=== PATIENT | male | born 1955 | race Two or more races ===

== ENCOUNTER 2016-07-01 17:19 | Emergency (ER) | payer OTHER ==
[~2016-07-01] VITALS: Ht 170.2 cm; Wt 88.0 kg
[2016-07-01] MEDS ORDERED: Adenosine 3 mg/mL 2 mL Inj ONE ×2 (17:24→17:26)
--- NOTE | 2016-07-01 17:26 | ED.REPORT ---
HPI-Chest Pain 40 and Over Date of Service Jul 01, 2016 ED Provider: The patient is a 61 year old male with history of hypertension, diabetes mellitus, high cholesterol and SVT, who presents to the emergency department complaining of severe chest pain that began 1 hour ago. He had similar symptoms 6 months ago and was diagnosed with SVT. He was treated with Adenosine and discharged home with close outpatient followup with his PCP. The patient was also seen by a spray painting machine operator. He did not miss any medication doses today or recently. Nursing Notes Stated Complaint: SEVERE CHEST PAIN Nursing Notes Reviewed: Yes Allergies: Coded Allergies: No Known Allergies (Unverified , 02/06/16) General Time Seen by MD: 17:26 Chief Complaint Chest pain Hx Obtained From: Patient, Spouse, Transit Mixer Driver Arrived By: Walk-in Sudden in Onset?: Yes Onset Occurred: 1 - 4 hours ago Symptom Duration: Since onset Quality: Painful Severity: Current: Severe Severity: Maximum: Severe Recent Healthcare: No recent doctor visit, No recent hospitalization Similar Sx Previous: Yes Past Medical History Past Medical History HTN Hypercholesterolemia Diabetes mellitus SVT Past Surgical History None reported Family History Noncontributory Smoking History Never Smoker Social History Alcohol Use: "Social" Drug Use: Denies drug use Other Social History: Good social support, , Local resident Ambulatory Status Independent Review of Systems Cardiovascular: Reports: Chest pain Complete sys rev & neg: except as marked. Physical Exam Initial Vital Signs Vital Signs (First) Date Time Temp Pulse Resp B/P Pulse Ox O2 Delivery O2 Flow Rate FiO2 07/01/16 17:39 36.5 207 24 137/78 97 Room Air 07/01/16 17:46 4 Initial VS: Reviewed Head / Eyes: Atraumatic, Normocephalic, PERRL ENT: Mucous membranes moist, Conjunctiva normal, No scleral icterus Neck: Supple, Non-tender, Full range of motion Back: No CVA tenderness Lymphatic: No lymphadenopathy Extremities: Vascular intact, Neuro intact, No swelling, No tenderness Skin: Warm, Dry, No cyanosis Neurologic: Alert, Oriented, Nonfocal Psychiatric: Mood/affect normal, Behavior normal, Normal thought content General/Constitutional: Awake, Alert Distress / Hydration: Positive: Distress mild Respiratory / Chest: Atraumatic, Breath sounds NL, Breath sounds = bilat, No respiratory distress, No rales, No rhonchi, No wheezing, No stridor, No chest tenderness Heart Rate / Rhythm: Positive: Tachycardia (heart rate in the low 200's) Abdomen: Atraumatic, Soft, Non-tender, McBurney's non-tender, No guarding, No rebound, BS normoactive, No distention, No hernia, No palpable mass Interpretation & Diagnostics Lab Results Interpretation Result Diagram: 07/01/16 1730 07/01/16 1730 Test 07/01/16 17:30 White Blood Count 8.5th/mm3 (3.8-10.1) Red Blood Count 4.82mil/mm3 (4.40-5.80) Hemoglobin 11.6g/dL (13.8-17.2) Hematocrit 36.8% (41.0-50.0) Mean Corpuscular Volume 76.3fL (81-100) Mean Corpuscular Hemoglobin 24.1pg (27.0-35.0) Mean Corpuscular Hemoglobin Concent 31.5% (32.0-37.0) Red Cell Distribution Width 14.5% (12.3-15.4) Platelet Count 292bil/L (150-400) Neutrophils (%) (Auto) 52.3% (40-74) Lymphocytes (%) (Auto) 35.5% (14-46) Monocytes (%) (Auto) 10.0% (4-12) Eosinophils (%) (Auto) 1.8% (0-5) Basophils (%) (Auto) 0.2% (0-3) Sodium Level 132mEq/L (134-144) Potassium Level 4.2mEq/L (3.5-5.2) Chloride Level 92mEq/L (97-108) Carbon Dioxide Level 22mmol/L (18-29) Blood Urea Nitrogen 14mg/dL (6-24) Creatinine 0.88mg/dL (0.76-1.27) Estimat Glomerular Filtration Rate 94mL/min (>59) Glucose Level 188mg/dL (60-99) Calcium Level 9.6mg/dL (8.5-10.1) Magnesium Level 1.8mg/dL (1.6-2.6) Total Bilirubin 0.2mg/dL (0.0-1.2) Aspartate Amino Transf (AST/SGOT) 44U/L (0-50) Alanine Aminotransferase (ALT/SGPT) 37U/L (0-44) Alkaline Phosphatase 58U/L (25-160) Troponin T < 0.010ug/L (0.0-0.011) Total Protein 8.6g/dL (6.4-8.4) Albumin 4.6g/dL (3.4-5.0) Thyroid Stimulating Hormone (TSH) 5.950uIU/mL (0.450-4.500) ECG Interpretation ECG Interpretation: SVT Previous EKG showed normal sinus rhythm, there were no delta waves or sign of WPW Time: 17:28 Interpreted by: ED physician ECG Interpretation: Sinus tachycardia with a rate of 103 Time: 17:37 Interpreted by: ED physician Re-Eval/Medical Decision Med Decision/Clinical Course Recurrent SVT treated with 12 of adenosine. 25 mg metoprolol tartrate given. Labs overall unremarkable for any emergent medical condition. Recommended the patient call his spray painting machine operator in the morning for close outpatient follow-up. Return precautions given Source of Hx: Old records, Family Summary of Info: Holter monitor final interpretation from 04/13/2016: No PVCs, no SVT, no VT, and no significant pauses present. Time of Eval: 17:31 Re-Evaluation/Progress Note: Discussed plan for adenosine. The patient understands and agrees. Time of Eval: 17:34 Re-Evaluation/Progress Note: Heart rate now at 112. The patient is feeling better and the chest pain has improved. Counseled Regarding: Diagnosis, Lab results, Need for follow-up, When/why to return to ED Discharge & Departure Primary Impression: SVT (supraventricular tachycardia) Disposition: Home Discharge Condition All VS Reviewed: Yes Condition: Stable Patient Instructions: Supraventricular Tachycardia (ED) Additional Instructions: Thank you for entrusting us with your care today. Continue your normal medications as previously prescribed. Call your spray painting machine operator tomorrow to schedule a close followup appointment. Please return to the emergency department for recurrent symptoms, chest pain, shortness of breath, or any other new or concerning symptoms. Referrals: Alejandro Espinoza MD (PCP/Family) Angelina Carty MD Scribe Attestation Portions of this note were transcribed by Clare Hernandez. I, Dr. Castillo personally performed the history, physical exam and medical decision-making; I reviewed and confirmed the accuracy of the information in the transcribed note. Signed by: Nahun Garcia, 07/01/2016 and 1805. copies to: Alejandro Espinoza MD; Angelina Carty MD, Timothy S DO Jul 01, 2016 17:26 Clare Hernandez Jul 01, 2016 17:32
[2016-07-01] MEDS ORDERED: Adenosine 3 mg/mL 2 mL Inj IVPUSH ONE (17:30)
[2016-07-01] MEDS ORDERED: 0.9% Sodium Chloride 1,000 ML IV ONE (17:30)
[2016-07-01 17:38] LABS: BASOPHILS % (AUTO) 0.2 % (0-3); EOSINOPHILS % (AUTO) 1.8 % (0-5); Mean Corpuscular Hemoglobin 24.1 pg (27.0-35.0); Mean Corpuscular Volume 76.3 fL (81-100); NEUTROPHILS % (AUTO) 52.3 % (40-74); Platelet Count 292 bil/L (150-400)
[2016-07-01 17:39] VITALS: BP 137/78; PULSE 207; RESP 24; O2SAT 97
[2016-07-01 17:46] VITALS: BP 153/78; PULSE 110; RESP 30; O2SAT 100
[2016-07-01 17:58] VITALS: BP 122/70; PULSE 101; RESP 16; O2SAT 100
--- NOTE | 2016-07-01 18:15 | DRSVH ---
PROCEDURE: X-RAY CHEST ONE VIEW, PORTABLE ([id number]) INDICATIONS: CHEST PAIN TECHNIQUE: One view of the chest was acquired. COMPARISON: None. FINDINGS: Surgical changes and devices: None. Lungs and pleura: No pleural effusions or pneumothorax. Lungs are clear. Mediastinum: Mediastinal contours appear normal. Heart size is normal. Bones and chest wall: No suspicious bony lesions. Overlying soft tissues appear unremarkable. IMPRESSION: No acute cardiopulmonary disease process. Dictated by: Tianna Oneill MD, PhD on 07/01/2016 at 18:13 Approved by: Tianna Oneill MD, PhD on 07/01/2016 at 18:14
[2016-07-01 18:19] LABS: TROPONIN T < 0.010 ug/L (0.0-0.011)
[2016-07-01 18:27] LABS: Magnesium 1.8 mg/dL (1.6-2.6)
[2016-07-01 20:44] VITALS: BP 138/82; PULSE 93; RESP 14; O2SAT 93
== END 2016-07-01 20:46 | disposition home or self-care (01) ==
LOC: SED 17:19
DX: I47.1 Supraventricular tachycardia (principal); I10 Essential (primary) hypertension; E11.9 Type 2 diabetes mellitus without complications
CPT/HCPCS: 36415; 71010; 80053; 83735; 84443; 84484; 85025; 93005; 96361; 96374; 99285; J0153; J7030

== ENCOUNTER 2016-10-13 22:19 | Emergency (ER) | payer OTHER ==
[~2016-10-13] VITALS: Ht 165.1 cm; Wt 90.9 kg
[2016-10-13 22:23] VITALS: BP 116/56; PULSE 108; RESP 28; O2SAT 95
--- NOTE | 2016-10-13 22:25 | ED.REPORT ---
HPI-General Illness Date of Service October 13, 2016 ED Provider: Mark Desouza MD Pt is a 61 y/o Brandee-speaking male w/ a hx of SVT, HTN, hyperlipidemia, DM, presenting to the ED via EMS with his family due to rapid palpitations which began about 1 hr prior to arrival and lasted about 15-20 minutes. Medics were called to the scene and the patient was found to be in SVT. 6 mg Adenosine was administered and he was converted to a NSR at rate ~100 bpm successfully. He experienced chest pain, shortness of breath, and headache during the episode, all of which are almost if not completely resolved at time of interview. This is the 3rd time he has been seen for SVT here at [facility], past episodes occurring on Jul 01, 2016 and Feb 06, 2016. His family states that he has not been taking his regular morning-time BP medication, which they do not know the name of. Rhythm strip on route is reviewed and interpreted as SVT. Nursing Notes Stated Complaint: SUBSTERNAL PALPITATIONS SOB Chief Complaint: Dysrhythmia/Cardiac Nursing Notes Reviewed: Yes Allergies: Coded Allergies: No Known Allergies (Unverified , 02/06/16) Scheduled Glipizide (Glipizide) 10 Mg Tablet 10 MG PO BID Hydrochlorothiazide (Hydrochlorothiazide) 25 Mg Tablet 25 MG PO DAILY Lisinopril (Lisinopril) 40 Mg Tablet 40 MG PO DAILY Metformin (Metformin) 500 Mg Tablet 1,000 MG PO MORNING Metformin (Metformin) 500 Mg Tablet 1,500 MG PO HS Metoprolol Tartrate (Metoprolol Tartrate) 50 Mg Tablet 50 MG PO BID Metoprolol Tartrate (Metoprolol Tartrate) 75 Mg Tablet 75 MG PO BID Pravastatin (Pravastatin) 40 Mg Tablet 40 MG PO HS General Time Seen by MD: 22:24 Chief Complaint Other (rapid palps) Hx Obtained From: Patient, EMS Arrived By: Ambulance Sudden in Onset?: Yes Onset Occurred: 1 - 4 hours ago Symptom Duration: 16 - 30 minutes Location: : Chest: Head Quality: Painful Radiation: : Does not radiate Severity: Current: No pain currently Severity: Maximum: Moderate Recent Healthcare: Previous diagnosis Similar Sx Previous: Yes Past Medical History Past Medical History HTN Hypercholesterolemia Diabetes mellitus SVT Past Surgical History None reported Family History Noncontributory Smoking History Never Smoker Social History Alcohol Use: "Social" Drug Use: Denies drug use Other Social History: Good social support, , Local resident Ambulatory Status Independent Review of Systems Full Review of Systems Constitutional: Denies: Chills, Fever Respiratory: Reports: Shortness of breath, Denies: Non-productive cough Cardiovascular: Reports: Chest pain GI: Denies: Abdominal pain, Nausea, Vomiting Neurologic: Reports: Headache Complete sys rev & neg: except as marked. Physical Exam Vital Signs Vital Signs Date Time Temp Pulse Resp B/P Pulse Ox O2 Delivery O2 Flow Rate FiO2 10/14/16 01:40 36.6 98 19 142/76 98 Room Air 10/13/16 23:26 102 16 124/66 97 Room Air 10/13/16 22:23 36.7 108 28 116/56 95 Nasal Cannula 2 Initial VS: Reviewed, Vital signs abnormal Head / Eyes: Atraumatic, Normocephalic, PERRL ENT: Mucous membranes moist, Conjunctiva normal, No scleral icterus Respiratory: Breath sounds normal, Clear to auscultation, No respiratory distress Abdomen / GI: Soft, Non-tender, No guarding, No rebound, No distention Skin: Warm, Dry, No cyanosis Neurologic: Alert, Oriented, Nonfocal Psychiatric: Behavior normal, Normal thought content General/Constitutional: Awake, Alert, No acute distress, Cooperative, Not toxic appearing Behavior: Positive: Anxious Appearance / Presentation: Positive: Obese (mild) Neck: Atraumatic, Supple, No meningismus, Full range of motion, No JVD, Thyroid NL Cardiovascular: Heart rate NL, Regular rhythm, Heart sounds NL, No gallop, No murmurs, No rubs Lower Extremity / Pelvis / MS: Atraumatic, Full range of motion, No swelling, Non-tender, No erythema, No deformity, Neurologic intact, Vascular intact No cords Interpretation & Diagnostics Lab Results Interpretation Result Diagram: 10/13/16222810/13/162228 Test 10/13/16 22:29 10/14/16 00:05 White Blood Count 9.8th/mm3 (3.8-10.1) Red Blood Count 4.86mil/mm3 (4.40-5.80) Hemoglobin 11.2g/dL (13.8-17.2) Hematocrit 36.2% (41.0-50.0) Mean Corpuscular Volume 74.5fL (81-100) Mean Corpuscular Hemoglobin 23.0pg (27.0-35.0) Mean Corpuscular Hemoglobin Concent 30.9% (32.0-37.0) Red Cell Distribution Width 14.8% (12.3-15.4) Platelet Count 327bil/L (150-400) Neutrophils (%) (Auto) 49.2% (40-74) Lymphocytes (%) (Auto) 37.6% (14-46) Monocytes (%) (Auto) 11.0% (4-12) Eosinophils (%) (Auto) 1.7% (0-5) Basophils (%) (Auto) 0.3% (0-3) Hold Purple Top Tube Received (Received) Prothrombin Time 10.2sec (8.1-12.5) Prothromb Time International Ratio 0.95ratio Activated Partial Thromboplast Time 24.7sec (22.8-33.0) D-Dimer < 0.50mg/L FEU (<0.50) Hold Blue Top Tube Received (Received) Sodium Level 138mEq/L (134-144) Potassium Level 3.9mEq/L (3.5-5.2) Chloride Level 98mEq/L (97-108) Carbon Dioxide Level 17mmol/L (18-29) Blood Urea Nitrogen 13mg/dL (6-24) Creatinine 0.86mg/dL (0.76-1.27) Estimat Glomerular Filtration Rate 97mL/min (>59) Glucose Level 176mg/dL (60-99) Calcium Level 9.9mg/dL (8.5-10.1) Magnesium Level 1.7mg/dL (1.6-2.6) Total Bilirubin 0.2mg/dL (0.0-1.2) Aspartate Amino Transf (AST/SGOT) 41U/L (0-50) Alanine Aminotransferase (ALT/SGPT) 36U/L (0-44) Alkaline Phosphatase 60U/L (25-160) Pro-B-Type Natriuretic Peptide 27.01pg/mL (0-210) Total Protein 8.6g/dL (6.4-8.4) Albumin 4.5g/dL (3.4-5.0) Thyroid Stimulating Hormone (TSH) 5.750uIU/mL (0.450-4.500) Free Thyroxine 1.16ng/dL (0.82-1.77) Hold [place] Top Tube Received (Received) Troponin T 0.010ug/L (0.0-0.011) ECG Interpretation ECG Interpretation: Sinus tachycardia rate 103 Time: 23:17 Interpreted by: ED physician Normal ECG Interpretation: No acute ischemic changes X-Ray Chest Interpretation Chest Xray Interpretation: Poor inspiration View: Portable, 1 view Interpretation / Wet Read by: Wet read ED physician NL X-Ray Chest Findings: No infiltrate, No acute disease Re-Eval/Medical Decision Med Decision/Clinical Course 61-year-old with repetitive episodes of SVT, previously evaluated here, presents after conversion with 6 mg of adenosine. He is negative by enzymes and has unremarkable EKG. Repeat enzymes also negative. He is not beta blocked at baseline with a pulse of ninety-six. Given an additional 50 mg of metoprolol, which is his baseline and hypertensive, and daily dose increased to seventy-five twice a day. He is discharged on stable condition for follow-up with PCP, and with the relish blender for possible intervention. Time of Eval: 01:04 Patient Status: Condition resolved, Complete relief, Pain resolved Re-Evaluation/Progress Note: Pt rechecked. Informed pt of plan for treatment. Pt understands and agrees with plan for treatment. F/U instructions and RTER warnings given. All questions addressed. Counseled Regarding: Diagnosis, Lab results, Need for follow-up, When/why to return to ED Discharge & Departure Primary Impression: SVT (supraventricular tachycardia) Disposition: Home Discharge Condition All VS Reviewed: Yes Condition: Stable Patient Instructions: Supraventricular Tachycardia (ED) Additional Instructions: You have had an episode of supraventricular tachycardia. This is generally not dangerous, but can cause problems if it is prolonged. Increase your current metoprolol to 1-1/2 tablets twice daily. I have written for the proper dose (75 mg) twice daily, and you can switch over to that one to fill your prescription. Follow-up with your doctor this week. Call tomorrow morning for follow-up. He can arrange follow-up with the quality rep, Dr. Anderson. Return if you have sustained palpitations for more than fifteen minutes. Return if you have chest pain or shortness of breath lasting longer than fifteen minutes. Referrals: Alejandro Espinoza MD (PCP) Kareem Anderson MD Attestation Portions of this note were transcribed by Nj May. I, Dr. Desouza personally performed the history, physical exam and medical decision-making; I reviewed and confirmed the accuracy of the information in the transcribed note. Signed by Nahun Moy, 10/13/16 - [id number] copies to: Alejandro Espinoza MD; Kareem Anderson MD, Christopher W MD October 13, 2016 22:25 [place] MAY October 13, 2016 22:34
[2016-10-13 22:50] LABS: BASOPHILS % (AUTO) 0.3 % (0-3); EOSINOPHILS % (AUTO) 1.7 % (0-5); Mean Corpuscular Volume 74.5 fL (81-100); NEUTROPHILS % (AUTO) 49.2 % (40-74); Platelet Count 327 bil/L (150-400)
[2016-10-13 22:59] LABS: D-Dimer < 0.50 mg/L FEU (<0.50); INR 0.95 ratio
[2016-10-13 23:11] LABS: TROPONIN T 0.01 ug/L (0.0-0.011)
[2016-10-13] MEDS ORDERED: METF-496 PO (23:12)
[2016-10-13 23:22] LABS: Magnesium 1.7 mg/dL (1.6-2.6)
[2016-10-13 23:26] VITALS: BP 124/66; PULSE 102; RESP 16; O2SAT 97
[2016-10-13] MEDS ORDERED: PRAV40TA PO (23:51)
[2016-10-13] MEDS ORDERED: GLIP10TA10 PO (23:54)
[2016-10-13] MEDS ORDERED: LISI40TA PO (23:54)
[2016-10-13] MEDS ORDERED: METO50TA3 PO (23:54)
[2016-10-13] MEDS ORDERED: HYDR25TA4 PO (23:56)
[2016-10-13] MEDS ORDERED: METF500T4 PO ×2 (23:57)
[2016-10-14] MEDS ORDERED: METO75TA PO (01:00)
[2016-10-14 01:40] VITALS: BP 142/76; PULSE 98; RESP 19; O2SAT 98
--- NOTE | 2016-10-14 09:24 | DRSVH ---
PROCEDURE: X-RAY CHEST ONE VIEW, PORTABLE ([id number]) INDICATIONS: 61 year-old male with SVT. TECHNIQUE: One view of the chest was acquired. COMPARISON: [facility], CR, XR CHEST 2VW, 02/06/2016, 11:05. [facility], CR, XR CHEST 1VW (PORTABLE), 07/01/2016, 17:55. FINDINGS: Surgical changes and devices: None. Lungs and pleura: Bilateral perihilar interstitial infiltrates. No pleural effusions or pneumothorax . Mediastinum: Mediastinal contours appear normal. Heart size is normal. Bones and chest wall: No suspicious bony lesions. Overlying soft tissues appear unremarkable. IMPRESSION: Bilateral perihilar interstitial infiltrates suspicious for pulmonary congestion. Dictated by: Patrick Márquez M.D. on 10/14/2016 at 9:22 Approved by: Patrick Márquez M.D. on 10/14/2016 at 9:23
== END 2016-10-14 01:43 | disposition home or self-care (01) ==
LOC: SED 22:19 → EDBD 22:19 → EDUNIT# 22:19 → SED 10-14 01:43
DX: I47.1 Supraventricular tachycardia (principal); R07.9 Chest pain, unspecified; R06.02 Shortness of breath; R51 Headache; I10 Essential (primary) hypertension; E11.9 Type 2 diabetes mellitus without complications; Z79.84 Long term (current) use of oral hypoglycemic drugs
CPT/HCPCS: 36415; 71010; 80053; 82948; 83735; 83880; 84439; 84443; 84484; 85025; 85378; 85610; 85730; 93005; 96374; 99285; J1885

== ENCOUNTER 2016-12-15 00:22 | Day surgery (SDC) | payer OTHER ==
[2016-12-15] VITALS (18 sets, daily range): BP systolic 133–181; BP diastolic 72–96; PULSE 69–97; RESP 12–25; O2SAT 96–100
[~2016-12-15] VITALS: Ht 170.2 cm; Wt 90.0 kg
[~2016-12-15 00:22] MED LIST: GLIP10TA10 PO; HYDR25TA4 PO; LISI40TA PO; METF500T4 PO; METO25TA6 PO; PRAV40TA PO
--- NOTE | 2016-12-15 06:15 | NUR ---
ADMISSION NOTE MALE PT ADMITTED FOR ABLATION. DISCUSSED PLAN OF CARE WITH PT, FAMILY AND FRIENDS. SEE ADMIT AND FLOW SHEET
[2016-12-15 06:58] LABS: INR 0.94 ratio
[2016-12-15] MEDS ORDERED: METF-496 PO (07:09)
[2016-12-15 07:53] LABS: BASOPHILS % (AUTO) 0.3 % (0-3); EOSINOPHILS % (AUTO) 2.3 % (0-5); MONOCYTES % (AUTO) 9.8 % (4-12); Mean Corpuscular Hemoglobin 22.2 pg (27.0-35.0); Platelet Count 289 bil/L (150-400)
[2016-12-15] MEDS ORDERED: Heparin 10,000 Unit/1,000 mL NS Premix IV ONE (07:53)
[2016-12-15] MEDS ORDERED: fentaNYL-PF 50 mCg/mL 2 mL Inj ONE (08:56)
[2016-12-15] MEDS ORDERED: Isoproterenol 200 mCg/50 mL D5W IV IV ONE ×2 (09:44→09:45)
[2016-12-15] MEDS ORDERED: Ondansetron 2 mg/mL 2 mL Inj IVPUSH PRN (11:00)
--- NOTE | 2016-12-15 11:42 | NUR ---
PATIENT RETURNED FROM [facility] [facility] IN STABLE CONDITION, ALERT AND ORIENTED.RIGHT GROIN TENDERNESS, NO HEMATOMA. POST PROCEDURE INSTRUCTIONS GIVEN THROUGH TATTOO TECHNICIAN.
--- NOTE | 2016-12-15 11:53 | NUR ---
Patient's son informed of completion of procedure and that is father is recovering.
--- NOTE | 2016-12-15 14:16 | PROCED ---
[address] [address] PROCEDURE NOTE PATIENT: JOSEF NICHOLSON : 1955 MR#: [id number] ADMIT: 12/15/2016 JOB ID: [id number] DATE OF SERVICE: 12/15/2016 PREOPERATIVE DIAGNOSIS(ES): Recurrent drug refractory paroxysmal supraventricular tachycardia. POSTOPERATIVE DIAGNOSIS(ES): AV zoe reentry tachycardia, Status post slow pathway modification. PROCEDURE PERFORMED: 1. Comprehensive electrophysiology study with left atrial pacing recording via the coronary sinus catheter. 2. Three-dimensional electroanatomic mapping using the CARTO 3 system. 3. Supraventricular tachycardia ablation (atrial ablation; slow pathway modification). 4. Fluoroscopy. SURGEON: Banquet Director: Kareem Anderson MD, Electrophysiology attending. INTAKE COUNSELOR: Polo Jacob PA-C ANESTHESIA: Bolus dosing of Versed and fentanyl were utilized for appropriate level of sedation. INDICATION: Mr. Nicholson is a pleasant 61-year-old man with recurrent drug refractory SVT. After discussion of risks and benefits of catheter based mapping ablation, he opted to proceed. PROCEDURE DESCRIPTION: The patient was taken to the EP laboratory in a fasting nonsedated state, where he was prepped in usual sterile fashion. The bilateral groins were infiltrated with 1% lidocaine. Then, using modified Seldinger technique, two 6-Zambian sheaths were inserted in left femoral vein and a 7 and 8-Zambian sheath was inserted through the right femoral vein under fluoroscopic guidance, the deflectable decapolar catheter was advanced to the coronary sinus with the most proximal bipolar at the os of the sinus. A CRD2 catheter was advanced to the His position. A Charlette quadripolar catheter was advanced to the RV apex. Comprehensive electrophysiology was undertaken with right atrial pacing recording, right ventricular pacing for His bundle recording, left atrial pacing via the coronary sinus catheter. Ventricular pacing showed a concentric atrial activation pattern without inducible dysrhythmias. Antegrade conduction showed an antegrade jump and ultimately the patient's clinical tachycardia was induced with an antegrade jump. This was a regular narrow tachycardia with a mean time of 0 msec consistent with AV zoe reentry tachycardia. An F curve 4 mm ablation catheter was brought to the field and used to create a three-dimensional electroanatomic map of the right atrium, tricuspid anulus, the triangle of Rios. Ablation lesions were placed at the base of the triangle of Rios in the region of the slow pathway ultimately leading to multiple conducted junctional beats. Aggressive induction maneuvers were undertaken post ablation, and ultimately following the last ablation, an antegrade jump with was seen without echoes or inducible AV node re-entry tachycardia. Of note, following the last ablation and for a few seconds, the patient was in 2:1 AV block. He resumed 1:1 very brisk conduction with otherwise normal intervals within 4 seconds. All catheters and sheaths were removed. Manual pressure was held for hemostasis. Patient for monitoring, bedrest. COMPLICATIONS: None. ESTIMATED BLOOD LOSS: Negligible. FINDINGS: 1. Baseline rhythm is sinus with an RR interval of 678 msec, ME 160 msec, QRS 76 msec, QT 336 msec. 2. Intracardiac intervals atrial V 75 msec, HV 56 msec. Post ablation those intervals are 84 msec and 56 msec, respectively. 3. Retrograde conduction VA conduction is concentric VA Wenckebach seen at 310 msec. VERP is 220 msec at a [address] 4. Antegrade conduction, AV zoe ERP is 230 msec at a [address] VERP was 220 msec. 5. 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 IMPRESSION: Successful slow pathway modification for AV zoe reentrant tachycardia. PLAN: 1. Bedrest x4 hours. 2. Discontinue beta blockade. 3. Monitoring overnight. 4. Anticipate discharge tomorrow. 5. Follow up Polo Ashleyjose in clinic in four weeks. ATTENDING STATEMENT: Kareem Anderson MD, Electrophysiology attending was present for and supervised/performed all aspects of this procedure
[2016-12-15] MEDS: HYDROcodone-APAP 5-325 mg Tablet PO PRN ×2 (14:17→20:07)
--- NOTE | 2016-12-15 15:30 | NUR ---
TRANSFER NOTE TO [facility]. REPORT GIVEN.
[2016-12-15] MEDS: 0.9% Sodium Chloride 1,000 ML IV SCH ×2 (15:46→16:21)
[2016-12-15] MEDS: metFORMIN ER 500 mg ER24 Tablet PO SCH (18:10)
--- NOTE | 2016-12-15 19:35 | NUR ---
Arrived to unit Pt arrived to P[facility] room 2005 at ~1550 today from [facility]. Pt's groin sites stable when assessed with NASIR RN and VSS on RA. Pt reported lots of mid/central back pain upon arrival. Pt was repositioned, given PRN ibuprofen, and a heat pack. Pt reported pain to resolve to a 1/10.
[2016-12-16] MEDS: HYDROcodone-APAP 5-325 mg Tablet PO PRN ×3 (01:49→12:17)
[2016-12-16] MEDS: 0.9% Sodium Chloride 1,000 ML IV SCH (02:21)
[2016-12-16 03:11] VITALS: BP 149/80; PULSE 74; RESP 17; O2SAT 97
[2016-12-16 05:53] VITALS: PULSE 81
--- NOTE | 2016-12-16 05:58 | NUR ---
Back Pain Pt reported back pain consistently at 9/10 throughout shift to mid-upper back; 2 tabs [place] administered, accompanied by heat packs, when requested by patient, with relief upon reassessment. Per patient, pain medication works for total relief for approx. 2.5-3hrs, when pain then returns. Pt describes pain as "severe", unrelieved by position change. Upon further assessment, pt stated pain began post-procedure, and states he experiences 1-2/10 chronic back pain, but since yesterday, the back pain has been 9/10. Pt requesting MD visit to explain etiology of new pain; pt verbalized understanding that pain may be exacerbated due to positioning from ablation procedure as well as bedrest postoperatively. VSS with brief hypertension at HS r/t acute pain, with spontaneous resolution upon reassessment once pain medication began to relieve pain. Tele SR 70s-80s.
--- NOTE | 2016-12-16 07:42 | PCM.DIMED ---
Discharge Instructions Date of Service Dec 16, 2016 Dates of Hospitalization Discharge Diagnosis Discharge Diagnosis PSVT Diabetes Hypertension Diet Discharge Diet: Heart Healthy, Diabetic Activity Discharge Activity: Other (To prevent infection, do not sit in a bath tub, hot tub or pool for 5 days. To prevent bleeding, do not lift, push or pull more than 10 lbs for 5 days.) Call your provider Call your provider for: Fever or Chills, Bleeding, Chest pain, Excessive diarrhea Patient Instructions Follow-up with [facility]-level in: 4 weeks Polo Jacob PA-C Dec 16, 2016 07:42
[2016-12-16] MEDS ORDERED: HYDR-4003 PO (07:56)
[2016-12-16 07:58] VITALS: BP 155/80; PULSE 87; RESP 18; O2SAT 97
[2016-12-16] MEDS: metFORMIN ER 500 mg ER24 Tablet PO SCH (08:15)
--- NOTE | 2016-12-16 08:34 | DIS ---
[address] [address] DISCHARGE SUMMARY PATIENT: JOSEF NICHOLSON : 1955 MR#: [id number] ADMIT: 12/15/2016 JOB ID: [id number] DIS: 12/16/2016 REASON FOR ADMISSION: Supraventricular tachycardia. CHIEF COMPLAINT: Rapid palpitations causing near syncope. BRIEF HISTORY: The patient is a pleasant 61-year-old man who has been dealing with tachycardia now for the past year or so. He has had episodes of fast heart rhythm associated with near syncope and significant chest discomfort for which he has gone to the ED on three occasions. He was found to have a rapid short RP supraventricular tachycardia which was responsive to adenosine. He is on a beta-keke and he also have hypertension and diabetes. He has not previously been a cardiology patient, but is known to have a normal echocardiogram study. The ECG shows sinus rhythm without ventricular pre-excitation. He was admitted for electrophysiologic study and possible SVT ablation. COURSE IN HOSPITAL: The patient was admitted to the [facility] and taken to the mine laborer, where a diagnostic EP study proved that his arrhythmia mechanism is AV node reentrant tachycardia utilizing both fast and slow zoe pathways. The slow pathway was then ablated by RF energy and he was no longer inducible into the arrhythmia. After the final ablation energy application, he had a few moments of intermittent AV block. The patient was kept overnight for observation to be sure that there was no continuing of AV block. In the morning a review of the cardiac monitor technician showed there had been no recordings of any degree of AV block. During the night, he continued having severe mid back pain which began in the afternoon while lying flat after the procedure. This was treated with Vicodin and gave him relief but then the discomfort returned. This morning he is feeling well enough to go home but would need some continued pain medication. The skin of his back is clear of any trujillo or lesions from the procedure. DISPOSITION: The patient was discharged home in good condition with a follow up appointment at the [facility] Cardiology office in one month. He was asked to continue his heart healthy and diabetic diets and take medications as prescribed. He will prevent infection by not sitting in a bathtub, hot tub or pool for five days and to prevent bleeding he was asked to not lift, push or pull more than 10 pounds for five days. DISCHARGE MEDICATIONS: 1. Hydrocodone-acetaminophen 5-325 mg tablets to take 1 tablet q.4 hours p.r.n. pain, quantity of 20 with no refills. 2. Glipizide 10 mg b.i.d. 3. Hydrochlorothiazide 25 mg daily. 4. Lisinopril 40 mg daily. 5. Metformin 500 mg daily. 6. Metformin ER 1 g b.i.d. 7. Pravastatin 40 mg q.h.s. 8. Metoprolol tartrate has been stopped. FINAL DIAGNOSES: 1. 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 2. Hypertension. 3. Diabetes.
[2016-12-16 08:55] VITALS: PULSE 71
--- NOTE | 2016-12-16 12:27 | NUR ---
Back pain/V-tach/Discharge Pt reporting back pain continues and was 10/10 this am, Pt given PRN vicodin which greatly reduced pain, Pt requested speaking with PA or MD about back pain, PA notified who was already aware of Pt's back pain and discussed with Pt, discharge order placed with script for PRN vicodin. Pt had 8 beats of V-tach later in the am after discharge order placed and tele had been reviewed by PA, but prior to removal of the tele, Pt asymptomatic, MD notified who instructed to continue with discharge. Pt discharge to home with family at ~1215 today. Pt's primary language is Brandee, discharge completed using [employer] information technology project manager. Pt given discharge educational materials on new prescription and on cardiac ablation. Pt's IV access D/C'd and intact X2. Pt instructed to f/u with Polo Jacob at cardiology office 01/28/17 at 1620, phone number supplied. Pt verbalized understanding of all discharge instructions. All belongings accompanied Pt at time of discharge.
== END 2016-12-16 12:37 | disposition home or self-care (01) ==
LOC: SOUO 00:22 → PCC 15:24 → SOUO 12-16 12:37
PROVIDERS: ATTEND Internal Medicine Cardiovascular Disease
DX: I47.1 Supraventricular tachycardia (principal); E11.9 Type 2 diabetes mellitus without complications; I10 Essential (primary) hypertension; Z79.84 Long term (current) use of oral hypoglycemic drugs; I44.30 Unspecified atrioventricular block
CPT/HCPCS: 36415; 80048; 85025; 85610; 93005; 93613; 93621; 93653; 99152; 99153; C1730; C1732; J0131; J1644; J2250; J3010